=== PATIENT | female | born 1965 | race Caucasian/White ===

== ENCOUNTER → 2016-07-22 | Day surgery (SDC) | payer OTHER ==
--- NOTE | 2016-07-23 17:21 | PATH ---
Cytology Non-Gynecological Report Patient Name: ANDREW HEALY [facility]. Rec. #: [id number] /Age/Gender: 1965 (Age: 51) / F Account: [id number] Location: RADIOLOGY Taken: 07/22/2016 Received: 07/22/2016 Reported: 07/23/2016 Physicians: Elda Love M.D. Specimen(s) Received RIGHT THYROID FNA Clinical History Right thyroid nodule, 1.1 x 0.94 x 1.05 cm Final Diagnosis THYROID GLAND, RIGHT LOBE, US GUIDED FINE NEEDLE ASPIRATION BIOPSY: SATISFACTORY FOR EVALUATION. NO MALIGNANT CELLS IDENTIFIED. CONSISTENT WITH NODULAR HYPERPLASIA (BENIGN FOLLICULAR NODULE, B[place]ESDA CATEGORY II, BENIGN), SEE COMMENT. Comment: The smears show clusters of bland appearing follicular epithelial cells arranged in mixed macro- and microfollicles. 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 Colloid is present. Electronically Signed Luis Alberto Singh M.D. Gross Description Received are four air dried smears, four smears in 95% alcohol, and 20 cc of bloody fluid in formalin. Four diff-quik stained slides, four Pap stained slides and one cell block are made.
== END | disposition home or self-care (01) ==
LOC: JRADIR 09:24
PROVIDERS: ATTEND Internal Medicine Endocrinology, Diabetes & Metabolism
PROC: 0GBH3ZX Excision of Right Thyroid Gland Lobe, Percutaneous Approach, Diagnostic (ICD-10-PCS; principal; 2016-07-22)
PROC: BG44ZZZ Ultrasonography of Thyroid Gland (ICD-10-PCS; 2016-07-22)
DX: E04.1 Nontoxic single thyroid nodule (principal)
CPT/HCPCS: 76942; 88173; 88305-TC